=== PATIENT | female | born 2000 | race American Indian/Alaskan Native ===

== ENCOUNTER 2019-01-21 11:15 | Emergency (ER) | payer SELFPAY ==
[2019-01-21 11:43] VITALS: BP 124/69
--- NOTE | 2019-01-21 11:45 | Emergency Department Report ---
Blank Doc - Documentation Documentation: pt presents for a knot on the head for a couple years states she now has one in the back of the head does not hurt no itching no drainage no fever no injury PMHx castillo parkinson white non smoker non drinker no drug use no PCP
--- NOTE | 2019-01-21 11:48 | Emergency Department Report ---
- General Chief complaint: Skin/Abscess/Foreign Body Stated complaint: KNOTS IN HEAD/PAIN Time Seen by Provider: 01/21/19 11:41 Source: patient Mode of arrival: Ambulatory Limitations: No Limitations - History of Present Illness Initial comments: pt is a 19 yo female who presents for a knot on the scalp for a couple years. She states she now has another one in the back of the head. She states it does not hurt. she denies any itching, drainage, fever, or injury. PMHx WPW non smoker non drinker no drug use no PCP - Related Data Allergies Allergy/AdvReac Type Severity Reaction Status Date / Time No Known Allergies Allergy Unverified 01/21/19 11:19 Abscess Boil HPI - HPI Chief Complaint: Skin/Abscess/Foreign Body Stated Complaint: KNOTS IN HEAD/PAIN Time Seen by Provider: 01/21/19 11:41 Allergies/Adverse Reactions: Allergies Allergy/AdvReac Type Severity Reaction Status Date / Time No Known Allergies Allergy Unverified 01/21/19 11:19 ED Review of Systems ROS: Stated complaint: KNOTS IN HEAD/PAIN Other details as noted in HPI Comment: All other systems reviewed and negative ED Past Medical Hx - Past Medical History Additional medical history: WPW - Surgical History Past Surgical History?: No - Social History Smoking Status: Never Smoker Substance Use Type: None ED Physical Exam - General Limitations: No Limitations General appearance: alert, in no apparent distress - Head Head exam: Present: atraumatic, other (small 1 cm area of edema which is soft in nature and easily moveable to the left, upper side of the scalp, no other areas identified, no erythema, no drainage, no signs of infection ) - Eye Eye exam: Present: normal appearance, PERRL - ENT ENT exam: Present: mucous membranes moist - Respiratory Respiratory exam: Absent: respiratory distress - Neurological Exam Neurological exam: Present: alert, oriented X3 - Psychiatric Psychiatric exam: Present: normal affect, normal mood - Skin Skin exam: Present: warm, dry, intact ED Course Vital Signs 01/21/19 11:41 Temperature 97.9 F Pulse Rate 73 Respiratory 16 Rate Blood Pressure 124/69 O2 Sat by Pulse 100 Oximetry ED Medical Decision Making - Medical Decision Making pt is a 19 yo female who presents for a knot on the scalp for a couple years. She states she now has another one in the back of the head. She states it does not hurt. she denies any itching, drainage, fever, or injury. PMHx WPW non smoker non drinker no drug use no PCP on exam pt has 1 cm small area of edema to the left upper scalp, it is soft in nature, easily moveable, no erythema, no drainage, no signs of infection, most consistent with lipoma or cyst. discussed with pt to follow up with a PCP in the next 2-3 days. given list of community resources. return to the emergency room for any new or worsening symptoms. - Differential Diagnosis lipoma, cyst, abscess Critical care attestation.: If time is entered above; I have spent that time in minutes in the direct care of this critically ill patient, excluding procedure time. ED Disposition Clinical Impression: Lipoma of scalp Disposition: DC- TO HOME OR SELFCARE Is pt being admited?: No Does the pt Need Aspirin: No Condition: Stable Instructions: Lipoma (ED) Additional Instructions: Please follow up with a primary care doctor in the next 2-3 days. return to the emergency room for any new or worsening symptoms. Referrals: NATALIE JENSEN MD [Primary Care Provider] - 2-3 Days [facility] [Outside] - 2-3 Days Forms: Work/School Release Form(ED) Time of Disposition: 11:58 Print Language: JORDANIAN
== END 2019-01-21 12:00 | disposition home or self-care (01) ==
LOC: ED 11:15
DX: D17.39 Benign lipomatous neoplasm of skin and subcutaneous tissue of other sites (principal)
CPT/HCPCS: 99281

== ENCOUNTER 2021-01-09 09:19 | Emergency (ER) | payer SELFPAY | END 2021-01-09 10:10 | LOC: ED 09:19 | DX: O26.891 Other specified pregnancy related conditions, first trimester (principal); R10.9 Unspecified abdominal pain; Z3A.01 Less than 8 weeks gestation of pregnancy; Z53.21 Procedure and treatment not carried out due to patient leaving prior to being seen by health care provider ==

== ENCOUNTER 2021-07-10 06:29 | Emergency (ER) | payer SELFPAY ==
[2021-07-10 06:35] VITALS: BP 121/75
[2021-07-10 07:10] LABS: HCG Qualitative,Urine Negative (Negative)
[2021-07-10 07:14] LABS: Bacteria,Urine 1+ /HPF (Negative); Bilirubin,Urine NEG (Negative); Blood,Urine NEG (Negative); Color,Urine Yellow (Yellow); Mucus,Urine FEW /HPF; Protein,Urine <15 mg/dL mg/dL (Negative); Urobilinogen,Urine < 2.0 mg/dL (<2.0)
--- NOTE | 2021-07-10 07:15 | Emergency Department Report ---
<DOUGLASMAXIME - Last Filed: 07/10/21 07:31> ED Female HPI - General Chief complaint: Urogenital-Female Stated complaint: Vaginal itching and burning Time Seen by Provider: 07/10/21 07:04 - Related Data Previous Rx's Medication Instructions Recorded Last Taken Type Doxylamine Succinate/Vit B6 1 each PO TID PRN #30 tablet. 04/19/19 Unknown Rx [Dicleliss Tomlinson 10-10 mg Tablet] Vit No.129/Iron/Folic 1 each PO DAILY #30 tablet 04/19/19 Unknown Rx [ Tablet] Miconazole/Cleanser 17 On Wipe 1 each VG QHS 3 Days #1 kit 07/10/21 Unknown Rx [Monistat 3 Combo Pack] Allergies Allergy/AdvReac Type Severity Reaction Status Date / Time No Known Allergies Allergy Unverified 01/21/19 11:19 ED Past Medical Hx - Medications Home Medications: Home Medications Medication Instructions Recorded Confirmed Last Taken Type Doxylamine Succinate/Vit B6 1 each PO TID PRN #30 tablet. 04/19/19 Unknown Rx [Subha Tomlinson 10-10 mg Tablet] Vit No.129/Iron/Folic 1 each PO DAILY #30 tablet 04/19/19 Unknown Rx [ Tablet] Miconazole/Cleanser 17 On Wipe 1 each VG QHS 3 Days #1 kit 07/10/21 Unknown Rx [Monistat 3 Combo Pack] ED Physical Exam - Rectal Rectal exam: Present: deferred - External exam: Present: other (Mild erythemic irritation along with mild swelling noted to the labium minora surrounding the clitoris with minimal chunky white discharge noted). Absent: bleeding ED Disposition Clinical Impression: Negative test Vaginitis Qualifiers: Chronicity: acute Qualified Code(s): N76.0 - Acute vaginitis Disposition: HOME / SELF CARE / HOMELESS Condition: Good Instructions: Vaginitis, [id number] Additional Instructions: Please wear loosefitting undergarments. Recommend that patient discontinue wearing tight black undergarments, as she may be having a chemical vaginitis/irritation from the material in her clothing. Wash genitals with gentle soap and water once every 12-24 hours, use the Monistat kit as directed, test was negative, we recommend follow-up with an outpatient [facility] doctor within the next 2 weeks. Please return to the emergency room right away with new pain, worsened pain, migration of pain, projectile vomiting, change in mental status, confusion, inability tolerate liquid feeds, new, worsened or different symptoms not present on the initial emergency room evaluation. Prescriptions: Miconazole/Cleanser 17 On Wipe [Monistat 3 Combo Pack] 1 each VG QHS 3 Days #1 kit Referrals: [facility] [Provider Group] - 3-5 Days Forms: Work/School Release Form(ED) <MINNIE CAMPOS - Last Filed: 07/10/21 09:01> ED Female HPI - General Source: patient, RN notes reviewed Mode of arrival: Ambulatory Limitations: No Limitations - History of Present Illness Initial comments: The patient is a 21-year-old female. She presents to the ER today with a complaint of vaginal discharge which is burning and itching. The patient denies dysuria. The patient reports that her symptoms started after she started wearing tight black underpants. She denies additional symptoms and complaints. She is also requesting a test. She reports to negative [id number] tests. She states she does not believe that she is . To me, she specifically denies headache, neck pain, chest pain, abdominal pain, shortness of breath, lightheadedness and dizziness Complaint: vaginal discharge -: Gradual, days(s) Consistency: intermittent Improves with: other (Removal of black underpants) Are you Now?: No Associated Symptoms: vaginal discharge. denies: vaginal bleeding, abdominal pain, nausea/vomiting, fever/chills, headaches, loss of appetite, dysuria - Related Data Sexually active: Yes ED Review of Systems ROS: Stated complaint: LATE PERIOD/LIGHT HEADED/VAGINAL ITCH Other details as noted in HPI Constitutional: denies: fever Eyes: denies: eye discharge ENT: denies: epistaxis Respiratory: denies: cough Cardiovascular: denies: chest pain Gastrointestinal: denies: abdominal pain Genitourinary: discharge. denies: urgency, dysuria, frequency, hematuria Musculoskeletal: denies: back pain Neurological: denies: weakness ED Past Medical Hx - Past Medical History Previous Medical History?: Yes Additional medical history: WPW - Surgical History Past Surgical History?: No - Social History Smoking Status: Former Smoker Substance Use Type: None ED Physical Exam - General Limitations: No Limitations General appearance: alert, in no apparent distress - Head Head exam: Present: atraumatic, normocephalic - Eye Eye exam: Present: normal appearance, EOMI. Absent: nystagmus - ENT ENT exam: Present: normal exam, normal orophraynx, mucous membranes moist, normal external ear exam - Neck Neck exam: Present: normal inspection, full ROM. Absent: tenderness, meningismus - Respiratory Respiratory exam: Present: normal lung sounds bilaterally. Absent: respiratory distress, wheezes, rales, rhonchi, stridor, decreased breath sounds - Cardiovascular Cardiovascular Exam: Present: regular rate, normal rhythm, normal heart sounds. Absent: bradycardia, tachycardia, irregular rhythm, systolic murmur, diastolic murmur, rubs, gallop - GI/Abdominal GI/Abdominal exam: Present: soft. Absent: distended, tenderness, guarding, rebound, rigid, pulsatile mass - Extremities Exam Extremities exam: Present: normal inspection, full ROM, other (2+ pulses noted in the bilateral upper and lower extremities. There is no palpable cord. negative Homans sign. Muscular compartments are soft. The pelvis is stable.). Absent: pedal edema, calf tenderness - Back Exam Back exam: Present: normal inspection, full ROM. Absent: tenderness, CVA tenderness (R), CVA tenderness (L), paraspinal tenderness, vertebral tenderness - Neurological Exam Neurological exam: Present: alert, oriented X3, normal gait, other (No facial droop. Tongue midline. Extraocular movements intact bilaterally. Facial sensation intact to light touch in V1, V2, V3 distribution bilaterally. 5 and a 5 strength in 4 extremities. Sensation intact to light touch in 4 extremities.). Absent: motor sensory deficit - Psychiatric Psychiatric exam: Present: normal affect, normal mood - Skin Skin exam: Present: warm, dry, intact, normal color. Absent: rash ED Course Vital Signs 07/10/21 06:32 Temperature 98.6 F Pulse Rate 86 Respiratory 18 Rate Blood Pressure 121/75 O2 Sat by Pulse 100 Oximetry ED Medical Decision Making - Lab Data Vital Signs 07/10/21 06:32 Temperature 98.6 F Pulse Rate 86 Respiratory 18 Rate Blood Pressure 121/75 O2 Sat by Pulse 100 Oximetry Lab Results 07/10/21 Range/Units Unknown Urine Color Yellow (Yellow) Urine Turbidity Slightly-cloudy (Clear) Urine pH 5.0 (5.0-7.0) Ur Specific [place] 1.016 (1.003-1.030) Urine Protein <15 mg/dl (Negative) mg/dL Urine Glucose (UA) Neg (Negative) mg/dL Urine Ketones Neg (Negative) mg/dL Urine Blood Neg (Negative) Urine Nitrite Neg (Negative) Ur Reducing Substances Not Reportable Urine Bilirubin Neg (Negative) Urine Ictotest Not Reportable Urine Urobilinogen < 2.0 (<2.0) mg/dL Ur Leukocyte Esterase Lg (Negative) Urine WBC (Auto) 4.0 (0.0-6.0) /HPF Urine RBC (Auto) 4.0 (0.0-6.0) /HPF U Epithel Cells (Auto) 7.0 (0-13.0) /HPF Urine Bacteria (Auto) 1+ (Negative) /HPF Urine Mucus Few /HPF Urine Yeast (Budding) Few /HPF Urine HCG, Qual Negative (Negative) - Medical Decision Making Differential diagnosis, including but not limited to: Encounter for test, vaginitis Assessment and plan: 21-year-old female, who was afebrile, with reassuring vital signs, clinically sober, with a GCS of 15, with a soft benign belly, who is not , who is on her cell phone, in no acute distress, negative test. This is most likely a vaginitis. [facility] was gracious enough to do the patient's gynecologic examination the patient does not appear to have emergent medical condition present at this time. Avoidance of tight fitting undergarments, Monistat, outpatient [facility] follow-up for primary care follow-up. Supportive care. Warm compresses. Critical care attestation.: If time is entered above; I have spent that time in minutes in the direct care of this critically ill patient, excluding procedure time. ED Disposition Is pt being admited?: No Does the pt Need Aspirin: No
== END 2021-07-10 08:17 | disposition home or self-care (01) ==
LOC: ED 06:29
DX: N76.0 Acute vaginitis (principal); Z87.891 Personal history of nicotine dependence
CPT/HCPCS: 81001; 81025; 99283

== ENCOUNTER 2021-07-25 07:42 | Emergency (ER) | payer SELFPAY ==
--- NOTE | 2021-07-25 10:02 | Emergency Department Report ---
ED General Adult HPI - General Chief complaint: Pain General Stated complaint: ABDOMINAL PAIN Time Seen by Provider: 07/25/21 09:03 Source: patient Mode of arrival: Ambulatory Limitations: No Limitations - History of Present Illness Initial comments: 21-year-old -[place] female patient presents with complaints of left lower pelvic pain radiating to her left lower back x2 days. Patient reports that she believes she is and that her last menstrual cycle was at the end of May. She has had history of 2 pregnancies with 1 and one child still living. No dysuria/hematuria/urinary frequency, vaginal discharge/dyspareunia, or fever/chills/sweats per patient. She does admit to nausea without vomiting. No stool changes per patient. Patient also states mild spotty vaginal bleeding. Past medical history includes WPW. She rates her current pain as a 2/10 in severity. - Related Data Previous Rx's Medication Instructions Recorded Last Taken Type Doxylamine Succinate/Vit B6 1 each PO TID PRN #30 tablet. 04/19/19 Unknown Rx [Subha Tomlinson 10-10 mg Tablet] Vit No.129/Iron/Folic 1 each PO DAILY #30 tablet 04/19/19 Unknown Rx [ Tablet] Miconazole/Cleanser 17 On Wipe 1 each VG QHS 3 Days #1 kit 07/10/21 Unknown Rx [Monistat 3 Combo Pack] Amoxicillin/Potassium Clav 1 each PO BID 5 Days #10 tablet 07/25/21 Unknown Rx [Augmentin 875-125 Tablet] Allergies Allergy/AdvReac Type Severity Reaction Status Date / Time No Known Allergies Allergy Verified 07/25/21 07:48 ED Review of Systems ROS: Stated complaint: ABDOMINAL PAIN Other details as noted in HPI Constitutional: denies: chills, fever, malaise ENT: denies: throat pain Respiratory: denies: cough, shortness of breath Cardiovascular: denies: chest pain, palpitations Gastrointestinal: abdominal pain, nausea. denies: vomiting, diarrhea, constipation, hematemesis, melena, hematochezia Genitourinary: denies: frequency, hematuria, discharge, dyspareunia Musculoskeletal: back pain Skin: denies: rash, lesions, change in color Neurological: denies: headache, numbness, paresthesias, abnormal gait Hematological/Lymphatic: denies: easy bleeding, swollen glands ED Past Medical Hx - Past Medical History Additional medical history: WPW - Social History Smoking Status: Former Smoker Substance Use Type: None - Medications Home Medications: Home Medications Medication Instructions Recorded Confirmed Last Taken Type Doxylamine Succinate/Vit B6 1 each PO TID PRN #30 tablet. 04/19/19 Unknown Rx [Diclakeisha Dr 10-10 mg Tablet] Vit No.129/Iron/Folic 1 each PO DAILY #30 tablet 04/19/19 Unknown Rx [ Tablet] Miconazole/Cleanser 17 On Wipe 1 each VG QHS 3 Days #1 kit 07/10/21 Unknown Rx [Monistat 3 Combo Pack] Amoxicillin/Potassium Clav 1 each PO BID 5 Days #10 tablet 07/25/21 Unknown Rx [Augmentin 875-125 Tablet] ED Physical Exam - General Limitations: No Limitations General appearance: alert, in no apparent distress - Head Head exam: Present: atraumatic, normocephalic, normal inspection - Neck Neck exam: Present: normal inspection - Respiratory Respiratory exam: Present: normal lung sounds bilaterally. Absent: respiratory distress - Cardiovascular Cardiovascular Exam: Present: regular rate, normal rhythm - GI/Abdominal GI/Abdominal exam: Present: soft, tenderness (Mild left suprapubic tenderness to palpation noted), normal bowel sounds. Absent: distended, guarding, rebound, rigid - Back Exam Back exam: Present: normal inspection, full ROM. Absent: tenderness, CVA tende rness (R), CVA tenderness (L), paraspinal tenderness, vertebral tenderness - Neurological Exam Neurological exam: Present: alert, oriented X3, normal gait - Psychiatric Psychiatric exam: Present: normal affect, normal mood - Skin Skin exam: Present: warm, dry, intact, normal color. Absent: rash ED Course Vital Signs 07/25/21 07:48 Temperature 98.4 F Pulse Rate 83 Respiratory 15 Rate Blood Pressure 109/71 O2 Sat by Pulse 99 Oximetry ED Medical Decision Making - Lab Data Result diagrams: 07/25/21 10:36 07/25/21 10:36 - Radiology Data Radiology results: report reviewed US OB <= 14 weeks fetus INDICATION / CLINICAL INFORMATION: pain and bleeding in . TECHNIQUE: Transabdominal. COMPARISON: None available. FINDINGS: UTERUS: Appears within normal limits. GESTATIONAL SAC: Well-defined oval shape and intrauterine in location. YOLK SAC: No significant abnormality. EMBRYO/FETUS: - [place]-Rump Length = 2 mm - Heart Rate: No heart tones. ADNEXA: No significant abnormality. FREE FLUID: None. ADDITIONAL FINDINGS: None. IMPRESSION: 1. Single uterine with estimated sonographic age of 6 weeks 0 days. No heart tones identified which could be related to early . - Medical Decision Making 21-year-old -[place] female patient presents with complaints of left lower pelvic pain radiating to her left lower back x2 days. Patient reports that she believes she is and that her last menstrual cycle was at the end of May. She has had history of 2 pregnancies with 1 and one child still living. No dysuria/hematuria/urinary frequency, vaginal discharge/dyspareunia, or fever/chills/sweats per patient. She does admit to nausea without vomiting. No stool changes per patient. Patient also states mild spotty vaginal bleeding. Past medical history includes WPW. She rates her current pain as a 2/10 in severity. No acute abnormalities noted on blood work. UA shows UTI. Patient has positive test. Ultrasound shows 6-week 0-day IUP without acute abnormalities. No heart rate detected likely due to early per ultrasound interpretation. Will treat UTI with Augmentin. Patient referred to [facility] informed to follow-up within 1 week. Discussed in detail signs and symptoms that should prompt immediate return to the ED with patient who verbalizes understanding. Critical care attestation.: If time is entered above; I have spent that time in minutes in the direct care of this critically ill patient, excluding procedure time. ED Disposition Clinical Impression: UTI in , 6 weeks gestation of , Abdominal pain in Disposition: 01 HOME / SELF CARE / HOMELESS Is pt being admited?: No Condition: Stable Instructions: and Urinary Tract Infection, Abdominal Pain During Prescriptions: Amoxicillin/Potassium Clav [Augmentin 875-125 Tablet] 1 each PO BID 5 Days #10 t ablet Referrals: [facility] [Provider Group] - 3-5 Days [facility] [Provider Group] - 3-5 Days [facility] [Provider Group] - 3-5 Days Forms: Work/School Release Form(ED)
[2021-07-25 10:15] LABS: Bilirubin,Urine NEG (Negative); Blood,Urine NEG (Negative); Color,Urine Yellow (Yellow); Mucus,Urine FEW /HPF; Protein,Urine <15 mg/dL mg/dL (Negative); Urobilinogen,Urine < 2.0 mg/dL (<2.0)
[2021-07-25 10:19] LABS: HCG Qualitative,Urine Positive (Negative)
[2021-07-25 11:13] LABS: Basophils % (Auto) 0.4 % (0.0-1.8); Eosinophils # (Auto) 0.1 K/mm3 (0.0-0.4); Eosinophils % (Auto) 1.2 % (0.0-4.3); Hematocrit 29.7 % (30.3-42.9); Hemoglobin 9.2 gm/dl (10.1-14.3); Lymphocytes # (Auto) 1.8 K/mm3 (1.2-5.4); Lymphocytes % (Auto) 32.2 % (13.4-35.0); Mean Corpuscular HGB Conc 31 % (30-34); Monocytes # (Auto) 0.5 K/mm3 (0.0-0.8); Monocytes % (Auto) 8.5 % (0.0-7.3); Platelet Count 345 K/mm3 (140-440); Red Blood Count 4.54 M/mm3 (3.65-5.03); Red Cell Distribution Width 18.3 % (13.2-15.2)
[2021-07-25 11:25] LABS: Mean Corpuscular Volume 66 fl (79-97)
[2021-07-25 11:38] LABS: Alanine Aminotransferase < 5 units/L (7-56); Albumin 4.2 g/dL (3.9-5); BUN/Creatinine Ratio 14; Blood Urea Nitrogen 7 mg/dL (7-17); Calcium 8.8 mg/dL (8.4-10.2); Hemolysis Index 1
--- NOTE | 2021-07-25 12:42 | Ultrasound Report ---
US OB <= 14 weeks fetus INDICATION / CLINICAL INFORMATION: pain and bleeding in . TECHNIQUE: Transabdominal. COMPARISON: None available. FINDINGS: UTERUS: Appears within normal limits. GESTATIONAL SAC: Well-defined oval shape and intrauterine in location. YOLK SAC: No significant abnormality. EMBRYO/FETUS: - [place]-Rump Length = 2 mm - Heart Rate: No heart tones. ADNEXA: No significant abnormality. FREE FLUID: None. ADDITIONAL FINDINGS: None. IMPRESSION: 1. Single uterine with estimated sonographic age of 6 weeks 0 days. No heart tones i dentified which could be related to early . Signer Name: Oskar Greenfield MD Signed: 07/25/2021 12:38 PM Workstation Name: [id number]
[2021-07-25 13:10] VITALS: BP 109/80
== END 2021-07-25 13:09 | disposition home or self-care (01) ==
LOC: ED 07:42
DX: O23.41 Unspecified infection of urinary tract in pregnancy, first trimester (principal); N39.0 Urinary tract infection, site not specified; R10.9 Unspecified abdominal pain; Z87.891 Personal history of nicotine dependence; Z79.899 Other long term (current) drug therapy
CPT/HCPCS: 36415; 76801; 80053; 81001; 81025; 83690; 84702; 85025; 86900; 86901; 99283

== ENCOUNTER 2021-10-17 06:12 | Emergency (ER) | payer SELFPAY ==
[2021-10-17 06:20] VITALS: BP 121/66
--- NOTE | 2021-10-17 06:41 | Emergency Department Report ---
ED Dysuria HPI - HPI Chief Complaint: Urogenital-Female Stated Complaint: BURING & ITCHING W/URINATING Time Seen by Provider: 10/17/21 06:36 Duration: 5 Days Location of Discomfort: Other Severity: Mild Symptoms: Dysuria: No, Frequency: No, Suprapubic Pain: No, Flank Pain: No, Fever: No, Hematuria: No, Abdominal Pain: No, Previous UTI's: Yes Other History: 21 yo comes to ER with yeast infection. Monistat giving only temporary relief. Did not see obgy. No concern for STI. No back pain. No abd pain. No lesions. No fever or chills. On menses now. Discharge was white and thick - she states her usual yeast infection that she gets when she wears the wrong underwear. ED Review of Systems ROS: Stated complaint: BURING & ITCHING W/URINATING Other details as noted in HPI Comment: All other systems reviewed and negative ED Past Medical Hx - Past Medical History Previous Medical History?: Yes Hx Congestive Heart Failure: Yes Additional medical history: WPW - Surgical History Past Surgical History?: No - Family History Family history: no significant - Social History Smoking Status: Never Smoker Substance Use Type: None - Medications Home Medications: Home Medications Medication Instructions Recorded Confirmed Last Taken Type Fluconazole [Diflucan TAB] 100 mg PO QDAY #3 tablet 10/17/21 Unknown Rx Dysuria Exam - Exam General: Vital signs noted. No distress. Alert and acting appropriately. Exam: Yes Moist Mucous Membranes, No CVA Tenderness, No Abdominal Tenderness, No Rigidity or Guarding ED Course Vital Signs 10/17/21 06:17 Temperature 98.7 F Pulse Rate 97 H Respiratory 18 Rate Blood Pressure 121/66 O2 Sat by Pulse 100 Oximetry ED Medical Decision Making - Medical Decision Making Lab Results 10/17/21 Range/Units Unknown Urine Color Straw (Yellow) Urine Turbidity Hazy (Clear) Urine pH 5.0 (5.0-7.0) Ur Specific [place] 1.025 (1.003-1.030) Urine Protein 30 mg/dl (Negative) mg/dL Urine Glucose (UA) Negative (Negative) mg/dL Urine Ketones Negative (Negative) mg/dL Urine Blood 4+ (Negative) Urine Nitrite Negative (Negative) Ur Reducing Substances Not Reportable Urine Bilirubin Negative (Negative) Urine Ictotest Not Reportable Urine Urobilinogen < 2.0 (<2.0) mg/dL Ur Leukocyte Esterase Negative (Negative) Urine WBC (Auto) 3.0 (0.0-6.0) /HPF Urine RBC (Auto) > 182.0 (0.0-6.0) /HPF U Epithel Cells (Auto) 6.0 (0-13.0) /HPF Urine Mucus Few /HPF Urine HCG, Qual Negative (Negative) Vital Signs 10/17/21 06:17 Temperature 98.7 F Pulse Rate 97 H Respiratory 18 Rate Blood Pressure 121/66 O2 Sat by Pulse 100 Oximetry ua noted on menses preg neg exam wnl dc home with diflucan and if this does not relieve her irritation she will see obgyn. She verbalizes understanding. - Differential Diagnosis ro uti/preg/vaginitis Critical care attestation.: If time is entered above; I have spent that time in minutes in the direct care of this critically ill patient, excluding procedure time. ED Disposition Clinical Impression: Vaginitis Qualifiers: Chronicity: subacute Qualified Code(s): N76.1 - Subacute and chronic vaginitis Disposition: 01 HOME / SELF CARE / HOMELESS Is pt being admited?: No Does the pt Need Aspirin: No Condition: Stable Instructions: Vaginitis Additional Instructions: med as ordered today follow up with obgyn if persists referral below Prescriptions: Fluconazole [Diflucan TAB] 100 mg PO QDAY #3 tablet Referrals: JOSS HATFIELD MD [Staff Physician] - 3-5 Days Time of Disposition: 07:16
[2021-10-17 07:06] LABS: Mucus,Urine FEW /HPF
[2021-10-17 07:10] LABS: Bilirubin,Urine Negative (Negative); Blood,Urine 4+ (Negative); Color,Urine Straw (Yellow); HCG Qualitative,Urine Negative (Negative); RBC,Urine > 182.0 /HPF (0.0-6.0); Urobilinogen,Urine < 2.0 mg/dL (<2.0)
== END 2021-10-17 07:32 | disposition home or self-care (01) ==
LOC: ED 06:12
DX: N76.0 Acute vaginitis (principal); I50.9 Heart failure, unspecified
CPT/HCPCS: 81001; 81025; 99283